=== PATIENT | male | born 1990 | race Caucasian/White ===

== ENCOUNTER 2018-10-24 17:07 | Inpatient (IN) | payer BC ==
[2018-10-24] MEDS ORDERED: morphine 2 MG INJ IV (19:00)
[2018-10-24] MEDS ORDERED: LORAZEPAM 2 MG INJ IV (19:00)
[2018-10-24] MEDS ORDERED: ONDANSETRON 4 MG INJ IV (19:00)
[2018-10-24] MEDS ORDERED: ACETAMINOPHEN 325 MG TAB PO (19:00)
[2018-10-24] MEDS ORDERED: ZOLPIDEM 5 MG TAB PO (19:00)
[2018-10-24] MEDS ORDERED: NACL 0.9% 3 ML SYG IV (19:00)
[2018-10-24] MEDS ORDERED: DOCUSATE SODIUM 100 MG CAP PO (19:00)
[2018-10-24] MEDS: LEVETIRACETAM 1000 MG (PMX) 100 ML IVPB (21:01)
[2018-10-24] MEDS: SOD CHLORIDE 0.9% 1,000 ML IV (21:01)
[2018-10-24] MEDS: HYDROCODONE/APAP (5/325) TAB PO (21:02)
[2018-10-25 05:21] LABS: ADD MAN DIFF? NO
[2018-10-25 05:27] LABS: BASOPHILS % 0.4 % (0.0-2.0); EOSINOPHILS # 0.3 10^3/ul (0.0-0.5); EOSINOPHILS % 3.7 % (0.0-7.0); HEMATOCRIT 43.2 % (42.0-52.0); HEMOGLOBIN 15.5 g/dl (14.0-18.0); LYMPHOCYTES # 2.3 10^3/ul (0.8-2.9); LYMPHOCYTES % 27.2 % (15.0-51.0); MEAN CORPUSCULAR HEMOGLOBIN 33.3 pg (29.0-33.0); MEAN CORPUSCULAR HGB CONC 35.9 g/dl (32.0-37.0); MEAN CORPUSCULAR VOLUME 92.9 fl (82.0-101.0); MEAN PLATELET VOLUME 9.5 fl (7.4-10.4); MONOCYTE # 0.8 10^3/ul (0.3-0.9); MONOCYTES % 9.7 % (0.0-11.0); NEUTROPHILS % 58.8 % (39.0-77.0); PLATELET COUNT 226 10^3/UL (140-415); RED BLOOD COUNT 4.65 10^6/ul (4.70-6.10); RED CELL DISTRIBUTION WIDTH 11.7 % (11.5-14.5)
[2018-10-25 05:27] LABS: WHITE BLOOD COUNT 8.5 10^3/ul (4.8-10.8)
[2018-10-25 05:45] LABS: ALANINE AMINOTRANSFERASE 24 IU/L (13-69); ALBUMIN 4.2 g/dl (3.3-4.9); ALBUMIN/GLOBULIN RATIO 1.31; ALKALINE PHOSPHATASE 60 IU/L (42-121); ANION GAP 4 (5-13); ASPARTATE AMINO TRANSFERASE 27 IU/L (15-46); BLOOD UREA NITROGEN 10 mg/dl (7-20); CALCIUM 9.5 mg/dl (8.4-10.2); CARBON DIOXIDE 28 mmol/L (21-31); CHLORIDE 110 mmol/L (97-110); CREATININE 1.07 mg/dl (0.61-1.24); Estimated GFR > 60 mL/min (>60); GLUCOSE 88 mg/dl (70-220); MAGNESIUM 2.1 mg/dl (1.7-2.5); PHOSPHORUS 3.2 mg/dl (2.5-4.9); POTASSIUM 3.7 mmol/L (3.5-5.1); SODIUM 142 mmol/L (135-144); TOTAL PROTEIN 7.4 g/dl (6.1-8.1)
[2018-10-25] MEDS: SOD CHLORIDE 0.9% 1,000 ML IV (05:48)
[2018-10-25 06:01] LABS: FREE THYROXINE INDEX (Calc) 3.02 ug/ml (0.65-3.89); T3 UPTAKE 34.3 % (23.5-40.5); T4 (THYROXINE) 8.8 ug/dl (5.5-11.0)
[2018-10-25] MEDS: LEVETIRACETAM 1000 MG (PMX) 100 ML IVPB (08:37)
[2018-10-25] MEDS: AMLODIPINE 5 MG TAB PO (15:24)
[2018-10-25] MEDS: LABETALOL HCL 20MG INJ IV (16:24)
[2018-10-25] MEDS ORDERED: LEVETIRACETAM 1000 MG (PMX) 100 ML IVPB (16:30)
[2018-10-25] MEDS: LEVETIRACETAM 500 MG (PMX) 100 ML IVPB (21:25)
[2018-10-25] MEDS: HYDROCODONE/APAP (5/325) TAB PO (21:26)
[2018-10-26] MEDS: LEVETIRACETAM 500 MG (PMX) 100 ML IVPB (08:47)
[2018-10-26] MEDS: AMLODIPINE 5 MG TAB PO ×2 (08:47→10:43)
[2018-10-27] MEDS ORDERED: AMLODIPINE 5 MG TAB PO (09:00)
== END 2018-10-26 16:05 | disposition home or self-care (01) | DRG 101 ==
LOC: 6WM 17:07
DX: R56.9 Unspecified convulsions (principal); I10 Essential (primary) hypertension; G47.33 Obstructive sleep apnea (adult) (pediatric)
CPT/HCPCS: 70553; 80053; 83036; 83735; 84100; 84436; 84479; 85025; 95819